=== PATIENT | male | born 1995 | race Caucasian/White ===

== ENCOUNTER 2022-03-11 09:57 | Day surgery (SDC) | payer MEDICAID, SELFPAY ==
--- NOTE | 2022-03-10 11:00 | HO.ANESPROP2 ---
Documented by User: Elena Canas NP 03/10/22 11:01 HPI - Anesthesia Eval Consult details Narrative: 26yo M for Upper Endoscopy [facility] Past Medical History Medical History (Updated 03/10/22 @ 10:39 by Aleena Canseco RN) ADHD GERD (gastroesophageal reflux disease) Surgical History Surgical History (Updated 03/11/22 @ 10:04 by Nel Thomas) H/O endoscopy History of axillary surgery Social History Social History Patient Tobacco Use Status: Never used Tobacco Use of substances other than those prescribed or required for medical reasons: No Are you DNR?: No Advance Directives: No Advance Directives Information Provided: Yes Meds Allergies Allergy/AdvReac Type Severity Reaction Status Date / Time mite-Dermatophagoides Allergy Unknown Verified 03/11/22 10:05 bridget stone [dust mite - [place]] Seasonal Allergies Allergy Unknown Verified 03/11/22 10:05 Home Medications Medication Instructions Recorded Confirmed Last Taken Type dextroamphetamine-amphetamine ER 1 cap PO DAILY 03/11/22 03/11/22 Unknown History 20 mg 24hr capsule,extend release (Adderall XR) famotidine 20 mg tablet 1 tab PO BID 03/11/22 03/11/22 Unknown History Exam Exam Date and Time: March 10, 2022 1100 Assessment and Plan Assessment Anesthesia Assessment: Chart Reviewed Documented by User: Rainer Pineda MD 03/11/22 11:15 [facility] Past Medical History Medical History (Updated 03/10/22 @ 10:39 by Aleena Canseco RN) ADHD GERD (gastroesophageal reflux disease) Family History Family history of problems with anesthesia: No Surgical History Surgical History (Updated 03/11/22 @ 10:04 by Nel Thomas) H/O endoscopy History of axillary surgery History of Problems with Anesthesia: No Social History Social History Patient Tobacco Use Status: Never used Tobacco Use of substances other than those prescribed or required for medical reasons: No Are you DNR?: No Advance Directives: No Advance Directives Information Provided: Yes Meds Allergies Allergy/AdvReac Type Severity Reaction Status Date / Time mite-Dermatophagoides Allergy Unknown Verified 03/11/22 10:05 farbridget mcdaniels [dust mite - [place]] Seasonal Allergies Allergy Unknown Verified 03/11/22 10:05 Home Medications Medication Instructions Recorded Confirmed Last Taken Type dextroamphetamine-amphetamine ER 1 cap PO DAILY 03/11/22 03/11/22 Unknown History 20 mg 24hr capsule,extend release (Adderall XR) famotidine 20 mg tablet 1 tab PO BID 03/11/22 03/11/22 Unknown History Exam Airway Mallampati Class: I TM Dist: >3cm Neck ROM: Full Loose/Missing/Broken Teeth: No (Rrr) Heart: rrr Lungs: clear Assessment and Plan Final Anesthetic Review Family History of Problems with Anesthesia: No History of Problems with Anesthesia: No NPO: Yes ASA Class: II Final Preanesthetic Review: No Changes in Pt Med Stat, Meds/Allgs Chart Reviewed, Consent Obtained/Reviewed and Anes Risks/Benef Reviewed Patient Risk: Low Procedure Risk: Low Anesthetic Plan Anesthetic Plan: MAC: Disposition: Standard PACU
[2022-03-11 10:09] VITALS: BMI 19.6
[2022-03-11 10:17] VITALS: BP 118/59; PULSE 69; RESP 16; TEMP 36.5; O2SAT 100
[2022-03-11] MEDS: Lactated Ringers 1,000 ML 100 ML IVCONT (10:53)
--- NOTE | 2022-03-11 11:16 | MHC.SHP ---
Pre-Procedural Eval Section A Date of Service: 03/11/22 Section B Chief Complaint: reflux diease Details of Present Illness: see H&P no changes Relevant Family History (Specify if Yes): No Relevant Social History: None Present Medications: see Short Stay Collaborative assessment Medical History: No relevant PMH History of Previous Operations: No relevant previous surgery Allergies: Allergies Allergy/AdvReac Type Severity Reaction Status Date / Time mite-Dermatophagoides Allergy Unknown Verified 03/11/22 10:05 bridget stone [dust mite - [place]] Seasonal Allergies Allergy Unknown Verified 03/11/22 10:05 Review of Systems Sugical H&P ROS: Negative: Constitution, Cardiovascular, Respiratory, Neurological, Psychiatric, Hem-Onc, Allergic/Immunologic, Gastrointestinal, Genitourinary, Musculoskeletal, Integumentary, Endocrine and Eyes/Ears/Nose/Throat Exam Surgical H&P Exam: Normal: HEENT, Normal: Heart, Normal: Lungs, Normal: Extremities, Normal: Abdomen, Normal: Skin and Normal: Neurological Plan Diagnosis/Plan: Unchanged I have reviewed the history and physical and performed a pertinent physical examination on my patient. No changes have occurred unless specified.
--- NOTE | 2022-03-11 11:46 | PM.OP ---
Brief Operative Note Date of Service: 03/11/22 Pre-op diagnosis: GERD Post-op diagnosis: same Procedure: EGD Surgeon: Benny Robbins Anesthesia: MAC Was an [employer] Sales Representative used for this Procedure?: No Estimated blood loss (mL): 5 Pathology: other Condition: stable Disposition: PACU
[2022-03-11 11:58] VITALS: BP 109/57; PULSE 57; RESP 14; TEMP 36.4; O2SAT 95
[2022-03-11 12:13] VITALS: BP 109/61; PULSE 67; RESP 16; TEMP 36.4; O2SAT 98
--- NOTE | 2022-03-11 12:19 | OP_ITS ---
SURGEON: Benny Robbins MD INDICATIONS: Gastroesophageal reflux disease. PREOPERATIVE DIAGNOSIS: POSTOPERATIVE DIAGNOSIS: PROCEDURE PERFORMED: Upper endoscopy with biopsy. ESTIMATED BLOOD LOSS: COMPLICATIONS: ANESTHESIA: Monitored anesthesia care. ASSISTANTS: SPECIMENS: DESCRIPTION OF PROCEDURE: History and physical performed. The risks and benefits of the procedure were explained to the patient. Informed consent was obtained. The patient was placed in the left lateral decubitus position. The Olympus video gastroscope was introduced into the esophagus, stomach, and duodenum. Examination was performed. The scope was removed. He tolerated the procedure well and was taken to the recovery area in stable condition. The procedure was done on 03/11/2022. FINDINGS: Esophagus: The esophagus was normal. There was no esophagitis. Biopsies were obtained from the EG junction. Stomach: The stomach showed no evidence of masses, ulcers, or polyps. Antral biopsies were obtained to evaluate for H pylori. Duodenum: The bulb and second portion were normal. IMPRESSION: Gastroesophageal reflux disease, normal upper endoscopy. RECOMMENDATION: Follow up the biopsy results. MD GURU Christianson/JACIL / [id number]
[2022-03-11 12:28] VITALS: BP 107/66; PULSE 70; RESP 16; O2SAT 99
== END 2022-03-11 13:10 | disposition home or self-care (01) ==
PROVIDERS: PCP Nurse Practitioner Adult Health; Visit Provider Internal Medicine Gastroenterology
PROC: 0DJ08ZZ Inspection of Upper Intestinal Tract, Via Natural or Artificial Opening Endoscopic (ICD-10-PCS; CPT 43235; principal; 2022-03-11 11:10)
DX: K21.9 Gastro-esophageal reflux disease without esophagitis (principal); F90.9 Attention-deficit hyperactivity disorder, unspecified type; J30.2 Other seasonal allergic rhinitis; Z79.899 Other long term (current) drug therapy
CPT/HCPCS: 43239; 88305; 88342